=== PATIENT | female | born 1980 | race Hispanic/Latino ===

== ENCOUNTER 2018-02-07 08:07 | Emergency (ER) | payer OTHER ==
[~2018-02-07] VITALS: Ht 157.5 cm; Wt 77.1 kg
[~2018-02-07 08:07] MED LIST: TRAMADOL50 MG PO
--- NOTE | 2018-02-07 08:27 | ED CARDIAC/CP/PALPITATIONS ---
History of Present Illness General Chief Complaint: Chest Pain Stated Complaint: BIBA CHEST PAIN Source: patient, old records, EMS Exam Limitations: no limitations Vital Signs & Intake/Output Vital Signs & Intake/Output Vital Signs Date Time Temp Pulse Resp B/P B/P Pulse O2 O2 Flow FiO2 Mean Ox Delivery Rate 02/07 1304 98.3 57 20 130/80 98 Room Air 02/07 1121 98.1 60 20 136/82 98 Room Air 02/07 1021 98.4 56 20 128/66 98 Room Air 02/07 0921 98.5 67 20 132/73 98 Room Air 02/07 0843 64 20 133/71 98 Room Air 02/07 0833 98.4 87 20 153/92 07 0818 98 Room Air 02/07 0808 98.4 87 20 153/92 95 Room Air Allergies Coded Allergies: No Known Allergies (02/07/18) Reconcile Medications Amlodipine Besylate (Norvasc) 5 MG TABLET 1 TAB PO DAILY HEART (Reported) Lisinopril (Zestril) (Unknown Strength) TABLET (Unknown Dose) PO DAILY HEART (Reported) Triage Note: PT BIBA FROM WORK FOR C/O SUDDEN ONSET OF SHARP STABBING CHEST PAIN WHILE AT WORK. PT RECEIVED 324MG ASA AND 0.4MG NITRO FROM EMS. ARRIVES TO ED WITH NO C/O CHEST PAIN. EKG IN PROGRESS, DR CHRISTENSEN IN FOR EVAL. Triage Nurses Notes Reviewed? yes Onset: Just prior to arrival Duration: minute(s):, constant, gone now Timing: recent history Quality/Severity: severe, pressure, sharp Location: substernal Radiation: no radiation Activities at Onset: activity Prior Chest Pain/Card Workup: echocardiography Modifying Factors: Improves With: nitroglycerin, rest. 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 She currently has no chest pain. She denies fever chills nausea vomiting diarrhea abdominal pain shortness breath headache dysuria rash bleeding. Past History Travel History Traveled to [place] past 21 day No Medical History Any Pertinent Medical History? see below for history Cardiovascular: hypertension Surgical History Surgical History: non-contributory Psychosocial History What is your primary language Latvian Tobacco Use: Never used ETOH Use: denies use Illicit Drug Use: denies illicit drug use Family History Hx Contributory? No Review of Systems Review of Systems Constitutional: Reports: see HPI, diaphoresis. EENTM: Reports: no symptoms. Respiratory: Reports: no symptoms. Cardiovascular: Reports: see HPI, chest pain. GI: Reports: no symptoms. Genitourinary: Reports: no symptoms. Musculoskeletal: Reports: no symptoms. Skin: Reports: no symptoms. Neurological/Psychological: Reports: no symptoms. Hematologic/Endocrine: Reports: no symptoms. Immunologic/Allergic: Reports: no symptoms. All Other Systems: Reviewed and Negative Physical Exam Physical Exam General Appearance: well developed/nourished, alert, awake, anxious, mild distress, obese Head: atraumatic, normal appearance Eyes: Bilateral: normal appearance, PERRL, EOMI. Ears, Nose, Throat: normal pharynx, normal ENT inspection, hearing grossly normal Neck: normal inspection, supple, full range of motion, no midline tenderness Respiratory: normal breath sounds, chest non-tender, no respiratory distress, quiet respiration, lungs clear Cardiovascular: regular rate/rhythm, normal peripheral pulses, norml femoral pulses equa Peripheral Pulses: 4+ carotid (R), 4+ carotid (L) Gastrointestinal: normal bowel sounds, soft, non-tender, no organomegaly Back: normal inspection, normal range of motion, no vertebral tenderness Extremities: normal inspection, normal capillary refill, normal range of motion, no edema Neurologic/Psych: no motor/sensory deficits, awake, alert, oriented x 3, normal gait, sports clerk II-XII nml as tested, depressed affect Reflexes: 2+: bicep (R), bicep (L). Skin: intact, normal color, warm/dry Lymphatic: no anterior cervical cecilia Core Measures ACS in differential dx? Yes CVA/TIA Diagnosis No Sepsis Present: No Sepsis Focused Exam Completed? No Progress Differential Diagnosis: AMI, costochondritis, hyperkalemia, hypovolemia, hyperthyroid, pneumonia Plan of Care: Orders Procedure Date/time Status TROPONIN LEVEL 02/07 1125 Complete EKG 02/07 1125 Active TSH REFLEX 02/07 0823 Complete TROPONIN LEVEL 02/07 0823 Complete MAGNESIUM 07/03 0823 Complete HUMAN BETA HCG SCREEN 02/07 823 Complete COMPREHENSIVE METABOLIC PANEL 02/07 823 Complete CBC WITHOUT DIFFERENTIAL 02/07 823 Complete EKG 02/08 808 Active Laboratory Tests 02/07/18 1125: Troponin I < 0.01 02/07/18 0825: Anion Gap 13, Estimated GFR > 60, BUN/Creatinine Ratio 21.7, Glucose 115 H, Calcium 9.3, Magnesium 2.0, Total Bilirubin 0.3, AST 18, ALT 19, Alkaline Phosphatase 88, Troponin I < 0.01, Total Protein 7.5, Albumin 4.1, Globulin 3.4, Albumin/Globulin Ratio 1.2, TSH &T3 &Free T4 Intrp 1.420, Total Beta HCG NEGATIVE, CBC w Diff NO MAN DIFF REQ, RBC 4.60, MCV 83.6, MCH 28.3, MCHC 33.9, RDW 13.8, MPV 7.9, Gran % 67.0, Lymphocytes % 23.2, Monocytes % 7.7, Eosinophils % 1.7, Basophils % 0.4, Absolute Granulocytes 4.1, Absolute Lymphocytes 1.4, Absolute Monocytes 0.5, Absolute Eosinophils 0.1, Absolute Basophils 0 Diagnostic Imaging: Viewed by Me: Radiology Read. Discussed w/RAD: Radiology Read. CXR Impression: no acute abnormality, no infiltrates, normal size heart, normal mediastinum Initial ED EKG: normal axis, normal intervals, normal p-waves, normal QRS complex, normal sinus rhythm, nonspecific ST T wave chg Repeat EKG: unchanged Rhythm Strip: normal sinus rhythm Departure Departure Time of Disposition: 1315 Disposition: HOME OR SELF CARE Condition: Stable Clinical Impression Primary Impression: Chest pain syndrome Referrals: Patient Has No Primary Care Dr (PCP/Family) Departure Forms: Customer Survey General Discharge Information RELEASE- WORK Critical Care Note Critical Care Note Critical Care Time: 30-74 min (35)
[2018-02-07 08:37] LABS: ABSOLUTE BASOPHIL COUNT 0 /CUMM (0.0-0.2); ABSOLUTE EOSINOPHIL COUNT 0.1 /CUMM (0.0-0.7); ABSOLUTE GRANULOCYTE CT 4.1 /CUMM (1.4-6.5); ABSOLUTE LYMPH COUNT 1.4 /CUMM (1.2-3.4); ABSOLUTE MONOCYTE COUNT 0.5 /CUMM (0.10-0.60); BASOPHIL % 0.4 % (0.0-2.0); EOSINOPHIL % 1.7 % (0-5); HEMATOCRIT 38.4 % (37-47); MEAN CORPUSCULAR HGB 28.3 PG (27.0-31.0); MEAN CORPUSCULAR HGB CONC 33.9 G/DL (33.0-37.0); MEAN CORPUSCULAR VOLUME 83.6 FL (81.0-99.0); MEAN PLATELET VOLUME 7.9 FL (7.4-10.4); PLATELET COUNT 333 /CUMM (130-400); RBC DISTRIBUTION WIDTH 13.8 % (11.5-14.5); WHITE BLOOD CELL COUNT 6.1 /CUMM (4.8-10.8)
[2018-02-07] MEDS ORDERED: NORVASC5 M1 PO (08:59)
[2018-02-07] MEDS ORDERED: ZESTRIL10 M1 PO (08:59)
--- NOTE | 2018-02-07 10:09 | RADIOLOGY REPORT ---
EXAMINATION: XR CHEST CLINICAL INFORMATION: Chest pain COMPARISON: None TECHNIQUE: 2 views of the chest were obtained. FINDINGS: The lungs are well expanded. There is no focal consolidation, edema, or effusion. No pneumothorax. The cardiomediastinal silhouette is within normal limits. No acute osseous abnormality. IMPRESSION: No acute pulmonary findings.
[2018-02-07 13:04] VITALS: BP 130/80
== END 2018-02-07 13:24 ==
LOC: ERH 08:07
PROVIDERS: Emergency Medicine
DX: R07.89 Other chest pain (principal)
CPT/HCPCS: 71046; 93005; 93010; 96374; 99291